=== PATIENT | female | born 1985 | race African-American/Black ===

== ENCOUNTER 2018-03-02 17:43 | Outpatient (CLI) | payer MEDICAID ==
--- NOTE | 2018-03-02 21:14 | RADIOLOGY REPORT (SQ) ---
EXAM DESCRIPTION: US BIOPHYSICAL PROFILE WITHOUT NON STRESS TEST COMPLETED DATE/TME: 03/02/2018 19:21 CLINICAL HISTORY: 32 years, Female, non reactive NST at 32.6ega COMPARISON: None. TECHNIQUE: LIMITATIONS: None. FINDINGS: EXAM DESCRIPTION: CLINICAL HISTORY: non reactive NST at 32.6ega COMPARISON: None. FINDINGS: Biophysical profile score: tone: 2. movement: 2. breathin. Fluid volume: 2. Biophysical profile score is 8/8. heart rate 155 bpm. Presentation transverse. IMPRESSION: Normal exam. Biophysical IMPRESSION: 2010 [facility] [employer]- All Rights Reserved
== END 2018-03-02 21:59 | disposition home or self-care (01) ==
LOC: LC 17:43
PROVIDERS: ATTEND Student in an Organized Health Care Education/Training Program
PROC: 4A1HXCZ Monitoring of Products of Conception, Cardiac Rate, External Approach (ICD-10-PCS; principal; 2018-03-02)
DX: Z36.89 Encounter for other specified antenatal screening (principal)
CPT/HCPCS: 76819

== ENCOUNTER 2018-03-08 16:05 | Outpatient (CLI) | payer MEDICAID ==
--- NOTE | 2018-03-08 19:38 | RADIOLOGY REPORT (SQ) ---
EXAM DESCRIPTION: U/S PROFILE W/O STRESS COMPLETED DATE/TIME: 03/08/2018 7:26 pm REASON FOR STUDY: Nonreactive NST COMPARISON: 03/02/2018 TECHNIQUE: Limited carballo-scale realtime and static images of the fetus to measure specified parameter s. LIMITATIONS: None. FINDINGS: HEART RATE: 173 beats per minute. ADRIAN: 14.6 cm. BREATHING MOVEMENT: 2 points. MOVEMENT: 2 points. POSTURE AND TONE: 2 points. QUALITATIVE ADRIAN: 2 points. OTHER: No other significant finding. IMPRESSION: BIOPHYSICAL PROFILE: 12/27. Trimester of : Third - 28 weeks to delivery COMMENT: BREATHING MOVEMENTS: 2 POINTS: PRESENT 0 POINTS: ABSENT MOTION: 2 POINTS: PRESENT 0 POINTS: ABSENT TONE: 2 POINTS: PRESENT 0 POINTS: ABSENT AMNIOTIC FLUID VOLUME: 2 POINTS: LARGEST POCKET GREATER THAN 2 CM DEPTH. 0 POINTS: NO POCKET OF 2 CM. TECHNICAL DOCUMENTATION: JOB ID: [id number] [employer]- All Rights Reserved Reading location - IP/workstation name: [email or web address]
== END 2018-03-08 19:00 | disposition home or self-care (01) ==
LOC: LC 16:05
PROVIDERS: ATTEND Student in an Organized Health Care Education/Training Program
DX: Z34.93 Encounter for supervision of normal pregnancy, unspecified, third trimester (principal)
CPT/HCPCS: 76819

== ENCOUNTER 2018-03-15 17:17 | Outpatient (CLI) | payer MEDICAID ==
--- NOTE | 2018-03-15 18:31 | RADIOLOGY REPORT (SQ) ---
EXAM DESCRIPTION: U/S PROFILE W/O STRESS COMPLETED DATE/TIME: 03/15/2018 6:22 pm REASON FOR STUDY: Non reactive NST COMPARISON: 03/08/2018 TECHNIQUE: Limited carballo-scale realtime and static images of the fetus to measure specified parameter s. LIMITATIONS: None. FINDINGS: HEART RATE: 153 beats per minute. ADRIAN: 9.3 cm BREATHING MOVEMENT: 2 points. MOVEMENT: 2 points. POSTURE AND TONE: 2 points. QUALITATIVE ADRIAN: 2 points. OTHER: No other significant finding. IMPRESSION: BIOPHYSICAL PROFILE: 12/27. Trimester of : Third - 28 weeks to delivery COMMENT: BREATHING MOVEMENTS: 2 POINTS: PRESENT 0 POINTS: ABSENT MOTION: 2 POINTS: PRESENT 0 POINTS: ABSENT TONE: 2 POINTS: PRESENT 0 POINTS: ABSENT AMNIOTIC FLUID VOLUME: 2 POINTS: LARGEST POCKET GREATER THAN 2 CM DEPTH. 0 POINTS: NO POCKET OF 2 CM. TECHNICAL DOCUMENTATION: JOB ID: [id number] [email or web address]- All Rights Reserved Reading location - IP/workstation name: [email or web address]
== END 2018-03-15 18:32 | disposition home or self-care (01) ==
LOC: LC 17:17
PROVIDERS: ATTEND Obstetrics & Gynecology
PROC: 4A1HXCZ Monitoring of Products of Conception, Cardiac Rate, External Approach (ICD-10-PCS; principal; 2018-03-15)
DX: Z36.89 Encounter for other specified antenatal screening (principal)
CPT/HCPCS: 76819

== ENCOUNTER → 2018-03-19 | Outpatient (CLI) | payer MEDICAID ==
[2018-03-19 14:39] LABS: HEMATOCRIT 26.2 % (36.0-47.0); HEMOGLOBIN 9.3 g/dL (12.0-15.5); MEAN CORPUSCULAR HGB CONC 35.4 g/dL (32.0-36.0); MEAN CORPUSCULAR VOLUME 71 fl (80-97); PLATELET COUNT 198 10^3/uL (150-450); RED CELL DISTRIBUTION WIDTH 16.1 % (11.5-14.0); WHITE BLOOD COUNT 8.9 10^3/uL (4.0-10.5)
[2018-03-19 14:57] LABS: ASPARTATE AMINO TRANSFERASE 15 U/L (14-36)
[2018-03-19 14:58] LABS: UR PRO/CREAT RATIO RESULT 0.1 mg/mg (0.0-0.2); URINE CREATININE 110.8 mg/dL (16-327); URINE PROTEIN 12.7 mg/dL (<12)
== END ==
LOC: OD 13:53
PROVIDERS: ATTEND Registered Nurse Women's Health Care, Ambulatory
DX: O16.9 Unspecified maternal hypertension, unspecified trimester (principal); Z3A.00 Weeks of gestation of pregnancy not specified
CPT/HCPCS: 36415; 82565; 82570; 83615; 84156; 84450; 84550; 85027

== ENCOUNTER 2018-03-22 09:24 | Outpatient (CLI) | payer MEDICAID ==
--- NOTE | 2018-03-22 11:53 | RADIOLOGY REPORT (SQ) ---
EXAM DESCRIPTION: U/S PROFILE W/O STRESS COMPLETED DATE/TIME: 03/22/2018 11:05 am REASON FOR STUDY: NON-REACTIVE NST- GDM @ 35.5 WEEKS COMPARISON: None. TECHNIQUE: Limited carballo-scale realtime and static images of the fetus to measure specified parameter s. LIMITATIONS: None. FINDINGS: HEART RATE: 165 Beats per minute. ADRIAN: 16.8 cm. BREATHING MOVEMENT: 2 points. MOVEMENT: 2 points. POSTURE AND TONE: 2 points. QUALITATIVE ADRIAN: 2 points. OTHER: Vertex presentation. IMPRESSION: BIOPHYSICAL PROFILE: 12/27. Trimester of : Third - 28 weeks to delivery COMMENT: BREATHING MOVEMENTS: 2 POINTS: PRESENT 0 POINTS: ABSENT MOTION: 2 POINTS: PRESENT 0 POINTS: ABSENT TONE: 2 POINTS: PRESENT 0 POINTS: ABSENT AMNIOTIC FLUID VOLUME: 2 POINTS: LARGEST POCKET GREATER THAN 2 CM DEPTH. 0 POINTS: NO POCKET OF 2 CM. TECHNICAL DOCUMENTATION: JOB ID: [id number] [employer]- All Rights Reserved Reading location - IP/workstation name: [email or web address]
--- NOTE | 2018-03-22 12:19 | Non Stress Test Report ---
Non Stress Test Datetime Report Generated by CPN: 03/22/2018 12:19 DEMOGRAPHIC Test Number: 1 EGA NST: 35.5 EGA NST: 33.5 INDICATION Indication for Study: Diabetes Mellitus; Ordered by Provider Indication for Study: Ordered by Provider Indication for Study (NST) Other: sent from the office [employer] VITAL SIGNS Pulse - NST: 108 RESP - NST: 18 NBPSYS NST: 127 NBPDIA NST: 65 URINE RESULTS Urine Protein, NST: N/A Urine Ketones - NST: N/A Urine Glucose - NST: N/A Urine Blood - NST: N/A MONITORING Monitor Explained: Monitor Explained; Test Explained; Patient Verbalized Understanding Monitor Explained: Monitor Explained; Test Explained; Patient Verbalized Understanding Time on Monitor: 03/22/2018 09:35 Time on Monitor: 03/08/2018 16:14 Time on Monitor: 03/02/2018 17:51 Time off Monitor: 03/22/2018 11:54 Time off Monitor: 03/02/2018 20:34 NST Duration: 139 NST Duration: 163 NST INTERVENTIONS NST Interventions: PO Hydration; Reposition Patient; For Biophysical Profile NST Interventions: PO Hydration; Reposition Patient; For Biophysical Profile Physician Notified NST: DR SCHILLING Physician Notified NST: Dr. Tolliver BABY A: [id number] BABY A Movement : Present Movement : Present Contraction Frequency : NONE Contraction Frequency : None FHR Baseline : 145 FHR Baseline : 145 Accelerations : NONE Accelerations : 15X15 Decelerations : None Decelerations : None Variability : Moderate 6-25bpm Variability : Moderate 6-25bpm NST Review: Does Not Meet Criteria for Reactive NST NST Review: Does Not Meet Criteria for Reactive NST NST Review and Verified By : Eloy Morillo RN NST Review and Verified By : Yady Suárez RN and Supriya Avilez RN NST Results: Non-Reactive NST Results: Non-Reactive NST COMMENTS NST Comments: BPP- 8/8 NST Comments: BPP 8/8 NST REPORT Report Trigger: Send Report
== END 2018-03-22 11:57 | disposition home or self-care (01) ==
LOC: LC 09:24
PROVIDERS: ATTEND Obstetrics & Gynecology Gynecology
PROC: 4A1HXCZ Monitoring of Products of Conception, Cardiac Rate, External Approach (ICD-10-PCS; principal; 2018-03-22)
DX: O24.419 Gestational diabetes mellitus in pregnancy, unspecified control (principal); Z3A.35 35 weeks gestation of pregnancy
CPT/HCPCS: 76819

== ENCOUNTER 2018-03-26 10:38 | Inpatient (IN) | payer MEDICAID ==
[2018-03-26 11:31] LABS: APPEARANCE,URINE CLOUDY; BILIRUBIN,URINE NEGATIVE (NEGATIVE); COLOR,URINE YELLOW; GLUCOSE, URINE NEGATIVE (NEGATIVE); KETONES,URINE NEGATIVE (NEGATIVE); LEUKOCYTE ESTERASE,URINE MODERATE (NEGATIVE); NITRITE,URINE NEGATIVE (NEGATIVE); PROTEIN,URINE 30 mg/dL (NEGATIVE); URINE SPECIFIC GRAVITY 1.016; UROBILINOGEN,URINE NEGATIVE mg/dL (<2.0)
[2018-03-26 11:44] LABS: URINE AMPHETAMINES SCREEN NEGATIVE; URINE BARBITURATES SCREEN NEGATIVE; URINE BENZODIAZEPINES SCREEN NEGATIVE; URINE COCAINE SCREEN NEGATIVE; URINE MARIJUANA (THC) SCREEN NEGATIVE; URINE METHADONE SCREEN NEGATIVE; URINE PHENCYCLIDINE SCREEN NEGATIVE
[2018-03-26 11:52] LABS: HEMATOCRIT 28.3 % (36.0-47.0); HEMOGLOBIN 9.9 g/dL (12.0-15.5); MEAN CORPUSCULAR HEMOGLOBIN 24.9 pg (27.0-33.4); MEAN CORPUSCULAR HGB CONC 35.1 g/dL (32.0-36.0); MEAN CORPUSCULAR VOLUME 71 fl (80-97); PLATELET COUNT 201 10^3/uL (150-450); RED BLOOD COUNT 3.99 10^6/uL (3.72-5.28); RED CELL DISTRIBUTION WIDTH 16.3 % (11.5-14.0); WHITE BLOOD COUNT 10.8 10^3/uL (4.0-10.5)
[2018-03-26 12:03] LABS: ALANINE AMINOTRANSFERASE 20 U/L (9-52); ALBUMIN 3.4 g/dL (3.5-5.0); ALKALINE PHOSPHATASE 194 U/L (38-126); ANION GAP 13 (5-19); ASPARTATE AMINO TRANSFERASE 18 U/L (14-36); BILIRUBIN,TOTAL 0.3 mg/dL (0.2-1.3); BLOOD UREA NITROGEN 8 mg/dL (7-20); CALCIUM 9.5 mg/dL (8.4-10.2); CARBON DIOXIDE 20 mmol/L (22-30); CHLORIDE 108 mmol/L (98-107); GLUCOSE 82 mg/dL (75-110); POTASSIUM 4.1 mmol/L (3.6-5.0); SODIUM 141.2 mmol/L (137-145); TOTAL PROTEIN 6.2 g/dL (6.3-8.2); URIC ACID 5.6 mg/dL (2.5-6.2)
[2018-03-26 12:33] LABS: ABSOLUTE LYMPHOCYTES# (MANUAL) 2.1 10^3/uL (0.5-4.7); ABSOLUTE MONOCYTES # (MANUAL) 0.2 10^3/uL (0.1-1.4); ABSOLUTE NEUTROPHILS# (MANUAL) 8.5 10^3/uL (1.7-8.2); BAND NEUTROPHILS % (MANUAL) 1 % (3-5); BASOPHILS % (MANUAL) 0 % (0-2); EOSINOPHILS % (MANUAL) 0 % (0-6); LYMPHOCYTES % (MANUAL) 19 % (13-45); MONOCYTES % (MANUAL) 2 % (3-13); SEGMENTED NEUTROPHILS % (MAN) 78 % (42-78); TOTAL CELLS COUNTED 100
[2018-03-26 12:34] LABS: ANISOCYTOSIS 1+; HYPOCHROMASIA 1+; PLATELET COMMENT ADEQUATE; PLATELET LARGE PRESENT; POLYCHROMASIA SLIGHT; TEAR DROP CELLS SLIGHT; TOXIC GRANULATION SLIGHT; TOXIC VACUOLATION PRESENT
[2018-03-26] MEDS ORDERED: ALBUTEROL SULFATE 0.083% NEB 2.5 MG/3 ML AMPUL NEB PRN (13:56)
[2018-03-26 14:22] LABS: UR PRO/CREAT RATIO RESULT 0.2 mg/mg (0.0-0.2); URINE CREATININE 109.3 mg/dL (16-327); URINE PROTEIN 26.2 mg/dL (<12)
[2018-03-26] MEDS ORDERED: MAG HYDROX/AL HYDROX/SIMETH SUSP 30 ML UDCUP PO ONE (14:59)
[2018-03-26] MEDS ORDERED: MAG HYDROX/AL HYDROX/SIMETH SUSP 30 ML UDCUP ONE (15:07)
--- NOTE | 2018-03-26 16:48 | Admission Physical ---
Datetime Report Generated by CPN: 03/26/2018 16:48 CURRENT ADMISSION Chief Complaint: Signs/Symptoms Gestational HTN Indication for Induction: Not Applicable Admit Impression : , Intrauterine Admit Plan: Observation/Evaluation Admit Plan- Other: observation for 24 hour urine for protein ALLERGIES Medication Allergies: No Medication Allergies: No Known Allergies (03/22/2018) Latex: No Latex Allergies OBSTETRICAL HISTORY EDC: 04/21/2018 00:00 : 4 Para: 3 Term: 3 Livin Cesareans: 0 Gestational Diabetes: Yes Rh Sensitization: No Incompetent Cervix: No ADRIANNE: No Infertility: No ART Treatment: No Uterine Anomaly: No IUGR: No Hx Previous C/S: No Macrosomia: No Hx Loss/Stillborn: No PIH: Yes Hx : No Placenta Previa/Abruption: No Depression/PP Depression: No PTL/PROM: No Post Hemorrhage: No Current Procedures: Ultrasound; NST; BPP SEE RECORDS Alcohol: No Marijuana : No Cocaine: No Other Illicit Drugs: No Cigarettes: Never Smoker. 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 Heart Disease: No Hosp/Surgery: Yes Autoimmune Disorder: No Anesthetic Complications: No Kidney Disease: No Abnormal Pap Smear: No Neuro/Epilepsy: No Psychiatric Disorders: No Other Medical Diseases: Yes Hepatitis/Liver Disease: No Significant Family History: No Varicosities/Phlebitis: No Trauma/Violence : No Thyroid Dysfunction: No Medical History Comments: Sickle Cell trait Childbirth, Asthma hospitalizations INFECTIOUS HISTORY Gonorrhea: No Genital Herpes: No Chlamydia: No Tuberculosis: No Syphilis: No Hepatitis: No HIV/AIDS Exposure: No Rash or Viral Illness: No HPV: No PHYSICAL EXAM General: Normal HEENT: Normal Neurologic: Normal Thyroid: Deferred Heart: Normal Lungs: Normal Breast: Deferred Back: Normal Abdomen: Normal Genitourinary Exam: Normal Extremities: Normal DTRs: Normal Pelvic Type: Not Done Physical Exam Comments: pelvis proven to 8#9 Vital Signs: Reviewed Details Vital Signs: elevated BP VAGINAL EXAM Contraction Comments: none MEMBRANES Membranes: Intact FETUS A EGA: 36.2 Monitoring: External US FHR- Baseline: 145 Variability: Moderate 6-25bpm Accelerations: 15X15 Decelerations: None Estimated Weight (gm): 3100 Presentation: Vertex Admit Comment: at 35w2d sent from [facility] for elevated BP, CHTN with some severe range today. not on BP meds, hx asthma, SC trait, blood tx for anemia, pre-e x2, current GDM. P:23 hour obs with 24 hour urine collection PLANS FOR LABOR AND DELIVERY Labor and Delivery: None Pain Management: Epidural Feeding Preference: Breast Benefit of Breast Feed Discussed: Yes Circumcision: N/A INFORMED CONSENT Assignment: Grace Tolliver MD Signature: with User ID: Jorge Alberto : with User ID: [email or web address]
[2018-03-26] MEDS ORDERED: INSULIN REG, HUMAN 100 UNIT/ML 3 ML VIAL (PYX) ONE (17:56)
[2018-03-26] MEDS ORDERED: INSULIN NPH (ISOPHANE), HUMAN 100 UNIT/ML 3 ML ONE (21:46)
[2018-03-26] MEDS: INSULIN NPH (ISOPHANE), HUMAN 100 UNIT/ML 3 ML SUBCUT SCH (21:53)
[2018-03-27] MEDS ORDERED: INSULIN NPH (ISOPHANE), HUMAN 100 UNIT/ML 3 ML SUBCUT SCH (08:00)
[2018-03-27] MEDS ORDERED: INSULIN REG, HUMAN 100 UNIT/ML 3 ML VIAL (PYX) SUBCUT SCH ×3 (08:00→16:00)
[2018-03-27] MEDS ORDERED: INSULIN REG, HUMAN 100 UNIT/ML 3 ML VIAL (PYX) ONE ×3 (08:58→18:17)
[2018-03-27] MEDS ORDERED: INSULIN NPH (ISOPHANE), HUMAN 100 UNIT/ML 3 ML ONE ×2 (08:58→22:01)
[2018-03-27] MEDS ORDERED: MAG HYDROX/AL HYDROX/SIMETH SUSP 30 ML UDCUP ONE (15:49)
[2018-03-27 15:57] LABS: URINE PROTEIN 17.2 mg/dL (<12)
[2018-03-27 15:58] LABS: 24 HOUR URINE PROTEIN RESULT 440 mg/day (42-225)
[2018-03-27] MEDS ORDERED: MAG HYDROX/AL HYDROX/SIMETH SUSP 30 ML UDCUP PO ONE (16:27)
[2018-03-27] MEDS ORDERED: OXYTOCIN/NORMAL SALINE 20 UNIT/1,000 ML RTUINJ IV PRN (18:30)
[2018-03-27] MEDS ORDERED: DINOPROSTONE 10 MG VAGINAL INSERT.SR PV PRN (18:30)
[2018-03-27] MEDS ORDERED: RINGERS SOLUTION,LACTATED 1,000 ML IV PRN (18:30)
[2018-03-27] MEDS ORDERED: RINGERS SOLUTION,LACTATED 300 ML IV ONE (18:30)
[2018-03-27] MEDS ORDERED: HYDRALAZINE HCL INJ/PF 20 MG/1 ML SDV IV ONE (18:38)
[2018-03-27] MEDS ORDERED: HYDRALAZINE HCL INJ/PF 20 MG/1 ML SDV ONE (18:45)
[2018-03-27] MEDS ORDERED: DINOPROSTONE 10 MG VAGINAL INSERT.SR ONE (19:56)
[2018-03-27] MEDS: INSULIN NPH (ISOPHANE), HUMAN 100 UNIT/ML 3 ML SUBCUT SCH (22:03)
[2018-03-28] MEDS ORDERED: OXYTOCIN/NORMAL SALINE 20 UNIT/1,000 ML RTUINJ ONE (09:18)
[2018-03-28] MEDS ORDERED: DEXTROSE 50%-WATER SYRINGE 25 GM/50 ML DOSE IV PRN (10:13)
[2018-03-28] MEDS ORDERED: DEXTROSE 40% GEL 15 GM TUBE X 2 PO PRN (10:13)
[2018-03-28] MEDS ORDERED: INSULIN REG, HUMAN 100 UNIT/ML 3 ML VIAL (PYX) SUBCUT PRN (10:13)
[2018-03-28] MEDS ORDERED: GLUCAGON,HUMAN RECOMB 1 MG INJ IM PRN (10:13)
[2018-03-28] MEDS ORDERED: DEXTROSE 40% GEL 15 GM TUBE PO PRN (10:13)
[2018-03-28] MEDS ORDERED: DEXTROSE 50%-WATER SYRINGE 12.5 GM/25 ML DOSE IV PRN (10:13)
[2018-03-28] MEDS ORDERED: PENICILLIN G POTASSIUM 5,000,000 UNIT in DEXTROSE 5%-WATER 100 ML IV ONE (14:05)
[2018-03-28] MEDS ORDERED: PENICILLIN G-K 5 MILLION UNIT VIAL ONE ×3 (14:05→21:26)
[2018-03-28] MEDS: PENICILLIN G POTASSIUM 2,500,000 UNIT in DEXTROSE 5%-WATER 50 ML IV SCH ×2 (18:21→22:04)
[2018-03-28] MEDS ORDERED: INSULIN NPH (ISOPHANE), HUMAN 100 UNIT/ML 3 ML ONE (20:20)
--- NOTE | 2018-03-28 21:06 | L&D Progress Notes ---
PROGRESS NOTES Datetime Report Generated by CPN: 03/28/2018 21:06 PROGRESS NOTE Comment: Her cervix is 3 thick with very high presenting part. She could use some more cervical ripening but doesn't want cervadil. We will proceed with a slow pit tonight and attempt to bring the presenting part down. VAGINAL EXAM Contractions: none MEMBRANES Membranes: Intact FETUS A : 36+2 Estimated Weight (gm): 3100 Presentation: Vertex SIGNATURE SIGNATURE: [id number] SIGNATURE: ,[id number] SIGNATURE: ,[id number] Signature: with User ID: [email or web address]
[2018-03-28] MEDS: INSULIN NPH (ISOPHANE), HUMAN 100 UNIT/ML 3 ML SUBCUT SCH (22:07)
[2018-03-29] MEDS ORDERED: PENICILLIN G-K 5 MILLION UNIT VIAL ONE ×2 (02:24→06:18)
[2018-03-29] MEDS: PENICILLIN G POTASSIUM 2,500,000 UNIT in DEXTROSE 5%-WATER 50 ML IV SCH ×2 (02:32→06:25)
--- NOTE | 2018-03-29 13:11 | RADIOLOGY REPORT (SQ) ---
EXAM DESCRIPTION: U/S PROFILE W/O STRESS COMPLETED DATE/TIME: 03/29/2018 1:02 pm REASON FOR STUDY: iup 36+5 IDDM CHTN, morbid obesity COMPARISON: 03/22/2018, 03/15/2018 biophysical profile TECHNIQUE: Limited carballo-scale realtime and static images of the fetus to measure specified parameter s. LIMITATIONS: None. FINDINGS: HEART RATE: 160 beats per minute. ADRIAN: 7.5 cm. BREATHING MOVEMENT: 2 points. MOVEMENT: 2 points. POSTURE AND TONE: 2 points. QUALITATIVE ADRIAN: 2 points. OTHER: No other significant finding. IMPRESSION: BIOPHYSICAL PROFILE: 12/27. Trimester of : Third - 28 weeks to delivery COMMENT: BREATHING MOVEMENTS: 2 POINTS: PRESENT 0 POINTS: ABSENT MOTION: 2 POINTS: PRESENT 0 POINTS: ABSENT TONE: 2 POINTS: PRESENT 0 POINTS: ABSENT AMNIOTIC FLUID VOLUME: 2 POINTS: LARGEST POCKET GREATER THAN 2 CM DEPTH. 0 POINTS: NO POCKET OF 2 CM. TECHNICAL DOCUMENTATION: JOB ID: [id number] [employer]- All Rights Reserved Reading location - IP/workstation name: [email or web address]
--- NOTE | 2018-03-29 13:20 | PDOC PROGRESS REPORT ---
Subjective Progress Note for:: 03/29/18 Subjective:: pt feels well and has no complaints Reason For Visit: @36 3/7, CHRONIC HYPERTENSION,A2DM, Physical Exam - Physical Exam Vital Signs: Intake & Output 03/28/18 03/29/18 03/30/18 06:59 06:59 06:59 Intake Total 150 Balance 150 General appearance: PRESENT: no acute distress Respiratory exam: PRESENT: clear to auscultation gibran Cardiovascular exam: PRESENT: RRR Result Laboratory Results: 03/26/18 11:25 03/26/18 11:25 03/26/18 19:30 Vaginal/Anorectal Group B Streptococcus Culture - Final NO GROUP B STREPTOCOCCUS RECOVERED Assessment & Plan - Diagnosis (1) Chronic hypertension affecting Is this a current diagnosis for this admission?: Yes (2) Gestational diabetes mellitus (GDM) Is this a current diagnosis for this admission?: Yes - Plan Summary Plan Summary: pt admitted with with elevated bp on Monday. Pt is GDM on insulin and chronic HTN on no meds , Py has had cervidil and fo;ey cath without cervical change, Her cervical length is >5 cm and baby out of the pelvis. Her BPs with one exception has been less than 160 systolic and less than 110 diastolic,, Pt is stressed and uncomfortable and I spoke with Raheem Mo and we feel pt is mildly pre-eclamptic with chronic HTN' Pt was given the option of remaining in the hospital with induction again in a couple of days or go home with pre- eclampsia symptom watch, Pt wants to go home and will follow up on onday with MFM and return here if any signs of pre-eclampsia.
--- NOTE | 2018-03-29 13:26 | PDOC DISCHARGE SUMMARY ---
General - Admit/Disc Date/PCP Admission Date/Primary Care Provider: 03/27/18 18:28 BROOKE WEINER PA-C Discharge Date: 03/29/18 - Discharge Diagnosis (1) Chronic hypertension affecting Is this a current diagnosis for this admission?: Yes (2) Gestational diabetes mellitus (GDM) Is this a current diagnosis for this admission?: Yes - Additional Information Discharge Diet: As Tolerated Discharge Activity: Activity As Tolerated, Balance Activity w/Rest, Energy Conservation, Weigh Daily Home Medications: Albuterol Sulfate [Ventolin 0.083% Neb 2.5 Mg/3 Ml Vial.Neb] 2.5 mg IH PRN PRN 11/03/11 Vits96/Iron Fum/Folic [ Tablet] 1 tab PO DAILY 08/17/13 Aspirin [Aspirin 81 mg Chewable Tablet] 81 mg PO DAILY 03/08/18 Insulin Aspart [Novolog Flexpen] 14 unit SUBCUT ACBRKFST 03/08/18 Insulin Aspart [Novolog Flexpen] 14 unit SUBCUT BIDACBS 03/08/18 NPH, Human Insulin Isophane [Novolin N (NPH) Insulin 100 unit/mL] 22 unit SUBCUT ACBRKFST 03/26/18 NPH, Human Insulin Isophane [Novolin N (NPH) Insulin 100 unit/mL] 40 unit SUBCUT ACHS 03/26/18 History of Present Illness History of Present Illness: QUANTAVINATHALY BLANCA is a 32 year old female Hospital Course Hospital Course: pt admitted and induction attempted without cervical change, BPP 10/10 and option given and she wants to be discharged. She will return if any symptoms of pre-eclampsia or other problems,, Pt to see [facility] Monday. Physical Exam - Physical Exam Vital Signs: Intake & Output 03/28/18 03/29/18 03/30/18 06:59 06:59 06:59 Intake Total 150 Balance 150 General appearance: PRESENT: no acute distress Respiratory exam: PRESENT: clear to auscultation gibran Cardiovascular exam: PRESENT: RRR Result Laboratory Results: 03/26/18 11:25 03/26/18 11:25 03/26/18 19:30 Vaginal/Anorectal Group B Streptococcus Culture - Final NO GROUP B STREPTOCOCCUS RECOVERED Impressions: Stress Test 03/29/18 11:00 IMPRESSION: BIOPHYSICAL PROFILE: 12/27. Trimester of : Third - 28 weeks to delivery
--- NOTE | 2018-03-29 13:48 | Non Stress Test Report ---
Non Stress Test Datetime Report Generated by CPN: 03/29/2018 13:48 DEMOGRAPHIC EGA NST: 36.5 INDICATION Indication for Study: Chronic Hypertension; Ordered by Provider MONITORING Monitor Explained: Monitor Explained; Test Explained; Patient Verbalized Understanding Time on Monitor: 03/29/2018 12:00 Time off Monitor: 03/29/2018 12:20 NST Duration: 20 NST INTERVENTIONS NST Interventions: IV Fluids; For Biophysical Profile Physician Notified NST: Dr. Malone BABY A: [id number] BABY A Movement : Present Contraction Frequency : Intermittent FHR Baseline : 145 Accelerations : 15X15 Decelerations : None Variability : Moderate 6-25bpm NST Review: Meets Criteria for Reactive NST NST Review and Verified By : Lorena Camp RNC NST Results: Reactive NST COMMENTS NST Comments: BPP 8/8 on 11/08/18 NST REPORT Report Trigger: Send Report
== END 2018-03-29 13:37 | disposition home or self-care (01) | DRG 833 ==
LOC: LC 10:38 → LR 16:40 → 2S 03-27 06:31 → LR 03-27 06:39 → OBSVTOIN 03-27 18:28
PROVIDERS: ADMIT Obstetrics & Gynecology; ATTEND Obstetrics & Gynecology
PROC: 3E0P7VZ Introduction of Hormone into Female Reproductive, Via Natural or Artificial Opening (ICD-10-PCS; principal; 2018-03-27)
PROC: 4A1HXCZ Monitoring of Products of Conception, Cardiac Rate, External Approach (ICD-10-PCS; 2018-03-27)
DX: O11.3 Pre-existing hypertension with pre-eclampsia, third trimester (principal); O24.414 Gestational diabetes mellitus in pregnancy, insulin controlled; O99.013 Anemia complicating pregnancy, third trimester; O10.913 Unspecified pre-existing hypertension complicating pregnancy, third trimester; D57.1 Sickle-cell disease without crisis; Z3A.36 36 weeks gestation of pregnancy
CPT/HCPCS: 36415; 76819; 80053; 80307; 81001; 82570; 82962; 83615; 84156; 84550; 85025; 87081; C1758; G0378; J0360; J1815; J2540; J2590; J3490

== ENCOUNTER 2018-03-30 22:01 | Inpatient (IN) | payer MEDICAID ==
[2018-03-30 22:53] LABS: ABSOLUTE EOSINOPHILS # (AUTO) 0.1 10^3/uL (0.0-0.6); ABSOLUTE LYMPHOCYTES (AUTO) 1.7 10^3/uL (0.5-4.7); ABSOLUTE MONOCYTES (AUTO) 0.9 10^3/uL (0.1-1.4); ABSOLUTE NEUT (AUTO) 7.2 10^3/uL (1.7-8.2); BASOPHILS % (AUTO) 0.3 % (0-2); EOSINOPHILS % (AUTO) 0.9 % (0-6); HEMATOCRIT 25.4 % (36.0-47.0); HEMOGLOBIN 8.4 g/dL (12.0-15.5); LYMPHOCYTES % (AUTO) 17.4 % (13-45); MEAN CORPUSCULAR HEMOGLOBIN 23.5 pg (27.0-33.4); MEAN CORPUSCULAR HGB CONC 33.3 g/dL (32.0-36.0); MEAN CORPUSCULAR VOLUME 71 fl (80-97); MONOCYTES % (AUTO) 9.5 % (3-13); PLATELET COUNT 202 10^3/uL (150-450); RED BLOOD COUNT 3.59 10^6/uL (3.72-5.28); RED CELL DISTRIBUTION WIDTH 16.7 % (11.5-14.0); SEGMENTED NEUTROPHILS % (AUTO) 71.9 % (42-78); TOTAL CELLS COUNTED % (AUTO) 100 %
[2018-03-30 23:00] LABS: APPEARANCE,URINE SLIGHTLY-CLOUDY; BILIRUBIN,URINE NEGATIVE (NEGATIVE); COLOR,URINE YELLOW; GLUCOSE, URINE NEGATIVE (NEGATIVE); KETONES,URINE NEGATIVE (NEGATIVE); LEUKOCYTE ESTERASE,URINE TRACE (NEGATIVE); NITRITE,URINE NEGATIVE (NEGATIVE); PROTEIN,URINE 100 mg/dL (NEGATIVE); UROBILINOGEN,URINE NEGATIVE mg/dL (<2.0)
[2018-03-30 23:11] LABS: URINE AMPHETAMINES SCREEN NEGATIVE; URINE BARBITURATES SCREEN NEGATIVE; URINE BENZODIAZEPINES SCREEN NEGATIVE; URINE COCAINE SCREEN NEGATIVE; URINE MARIJUANA (THC) SCREEN NEGATIVE; URINE METHADONE SCREEN NEGATIVE; URINE PHENCYCLIDINE SCREEN NEGATIVE
[2018-03-30] MEDS ORDERED: GLUCAGON,HUMAN RECOMB 1 MG INJ SUBCUT PRN (23:23)
[2018-03-30] MEDS ORDERED: DEXTROSE 50%-WATER 25 GM/50 ML DISP.SYRIN IV PRN ×2 (23:23)
[2018-03-30] MEDS ORDERED: DEXTROSE 40% GEL 15 GM TUBE PO PRN ×2 (23:23)
[2018-03-30] MEDS ORDERED: CEFAZOLIN SODIUM 3 GM in DEXTROSE 5%-WATER 50 ML IV PRN (23:23)
[2018-03-30] MEDS ORDERED: CITRIC ACID/SODIUM CITRATE ORAL SOLN 15 ML UDCUP ONE (23:28)
[2018-03-30] MEDS ORDERED: CEFAZOLIN 1 GM/D5W RTU 3 GM/150 ML RTUPB IV ONE (23:28)
--- NOTE | 2018-03-30 23:37 | Admission Physical ---
Datetime Report Generated by CPN: 03/30/2018 23:36 CURRENT ADMISSION Chief Complaint: Uterine Contractions; Signs/Symptoms Gestational HTN Indication for Induction: Not Applicable Admit Impression : Term, Intrauterine ; No Active Labor; Intact Membranes; Primary Section Admit Plan: Admit to Unit; Initiate Section Protocol Admit Plan- Other: observation for 24 hour urine for protein ALLERGIES Medication Allergies: No Medication Allergies: No Known Allergies (03/22/2018) Latex: No Latex Allergies Food Allergies: N/A Environmental Allergies: N/A OBSTETRICAL HISTORY EDC: 04/21/2018 00:00 : 4 Para: 3 Term: 3 : 0 SAB: 0 IAB: 0 Ectopic: 0 Livin Cesareans: 0 VBACs: 0 Multiple Births: 0 Gestational Diabetes: Yes Rh Sensitization: No Incompetent Cervix: No ADRIANNE: No Infertility: No ART Treatment: No Uterine Anomaly: No IUGR: No Hx Previous C/S: No Macrosomia: No Hx Loss/Stillborn: No PIH: Yes Hx : No Placenta Previa/Abruption: No Depression/PP Depression: No PTL/PROM: No Post Hemorrhage: No Current Procedures: Ultrasound; NST; BPP Obstetrical History Comments: G1- 2006 , baby boy at 40 weeks, 7lbs 14oz, Pre-E G2- 2008 , baby boy at 40 weeks, 8lbs 9oz, Pre-E, GDM G3- 2013 , baby boy at 39 weeks, 8lbs 14oz G4- current, GDM on insulin, Pre-E SEE RECORDS Alcohol: No Marijuana : No Cocaine: No Other Illicit Drugs: No Cigarettes: Never Smoker. 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 Heart Disease: No Hosp/Surgery: Yes Autoimmune Disorder: No Anesthetic Complications: No Kidney Disease: No Abnormal Pap Smear: No Neuro/Epilepsy: No Psychiatric Disorders: No Other Medical Diseases: Yes Hepatitis/Liver Disease: No Significant Family History: No Varicosities/Phlebitis: No Trauma/Violence : No Thyroid Dysfunction: No Medical History Comments: Sickle Cell trait- has had transfusion Childbirth, Asthma hospitalizations INFECTIOUS HISTORY Gonorrhea: No Genital Herpes: No Chlamydia: No Tuberculosis: No Syphilis: No Hepatitis: No HIV/AIDS Exposure: No Rash or Viral Illness: No HPV: No PHYSICAL EXAM General: Normal HEENT: Normal Neurologic: Normal Thyroid: Deferred Heart: Normal Lungs: Normal Breast: Deferred Back: Normal Abdomen: Normal Genitourinary Exam: Normal Extremities: Normal DTRs: Normal Pelvic Type: Adequate Physical Exam Comments: pelvis proven to 8#9 Vital Signs: Reviewed Details Vital Signs: elevated BP VAGINAL EXAM Dilatation: 4 Effacement: 50 Station: -2 Contraction Comments: irregular MEMBRANES Membranes: Intact FETUS A EGA: 36.6 Monitoring: External US FHR- Baseline: 155 Variability: Moderate 6-25bpm Accelerations: 15X15 Decelerations: None FHR Category: Category II Estimated Weight (gm): 3100 Presentation: Breech Admit Comment: 32yo at 36+6ega presents for blurry vision with known CHTN with superimposed PreE and IOL was attempted on Mon and then discharged yesterday due to limited cervical change. H/o Ashtma, SC trait, obesity, GDM NPH /40, Reg . Abn AFP- informaseq nl. Baseline 24 hr UTP 243, 24 hr UTP Tues 03/27 ws 440. Reviewed with patient cvx 4cm and unchanged with bulging bag and no presenting part. US done with tanya breech presentation. Reviewed options for treatment and with significantly elevated blood pressures and symptomatic with superimposed preE would recommend delivery. Offered ECV and reviewed risks/benefits/alternatives and pt declines. She desires to proceed with Primary section. She desires IUD for contraception. PLANS FOR LABOR AND DELIVERY Labor and Delivery: None Pain Management: Epidural Feeding Preference: Breast Benefit of Breast Feed Discussed: Yes Circumcision: N/A INFORMED CONSENT Informed Consent Obtained: Section Delivery; Risks, Benefits and Alternatives Discussed Assignment: Grace Tolliver MD Signature: with User ID: [email or web address] : with User ID: [email or web address]
[2018-03-31] MEDS ORDERED: DIPHENHYDRAMINE HCL 50 MG/ML VIAL IV PRN (01:03)
[2018-03-31] MEDS ORDERED: FENTANYL CITRATE INJ/PF 100 MCG/2 ML AMPUL IV PRN ×3 (01:03)
[2018-03-31] MEDS ORDERED: MEPERIDINE HCL/PF INJ 25 MG/1 ML DISP.SYRIN IV PRN (01:03)
[2018-03-31] MEDS ORDERED: PROMETHAZINE HCL INJ 25 MG/1 ML VIAL IV PRN ×2 (01:03→02:29)
[2018-03-31] MEDS ORDERED: ACETAMINOPHEN 1,000 MG/100 ML RTUPB IV ONE (02:27)
[2018-03-31] MEDS ORDERED: DIPH/PERTUSS(ACELL)/TETANUS VAC/PF 0.5 ML SYR (>=10YO) IM PRN (02:29)
[2018-03-31] MEDS ORDERED: MORPHINE SULFATE 10 MG/ML INJ ONE (02:29)
[2018-03-31] MEDS ORDERED: OXYTOCIN/NORMAL SALINE 20 UNIT/1,000 ML RTUINJ IV PRN (02:29)
[2018-03-31] MEDS ORDERED: HYDROMORPHONE HCL INJ/PF 2 MG/ML AMPULE IV PRN (02:29)
[2018-03-31] MEDS ORDERED: SIMETHICONE 80 MG TAB.CHEW PO PRN (02:29)
[2018-03-31] MEDS ORDERED: ACETAMINOPHEN 325 MG TABLET PO PRN (02:29)
[2018-03-31] MEDS ORDERED: ACETAMINOPHEN 1,000 MG/100 ML RTUPB IV PRN (02:29)
[2018-03-31] MEDS ORDERED: OXYCODONE-ACETAMINOPHEN 5-325 MG TABLET PO PRN (02:29)
[2018-03-31] MEDS ORDERED: MEASLES,MUMPS&RUBELLA VACC/PF 0.5 ML VIAL SUBCUT PRN (02:29)
[2018-03-31] MEDS: MORPHINE SULFATE 10 MG/ML INJ IV PRN ×2 (02:34→02:52)
--- NOTE | 2018-03-31 02:44 | Warning Signs in Babies ---
VOD Warning Signs Datetime Report Generated by [facility]: 03/31/2018 02:44 VOD#608 -Warning Signs in Babies: Needs to be viewed. (03/31/2018 02:30:Natalia Caldera RN)
[2018-03-31] MEDS ORDERED: MEPERIDINE HCL/PF INJ 25 MG/1 ML DISP.SYRIN ONE (03:07)
[2018-03-31] MEDS ORDERED: OXYTOCIN/NORMAL SALINE 20 UNIT/1,000 ML RTUINJ ONE (03:17)
--- NOTE | 2018-03-31 03:20 | Brief Operative Note ---
BRIEF OPERATIVE REPORT DATE OF SURGERY: 03/31/18 TIME OF SURGERY: 01:00 PREOPERATIVE DIAGNOSIS: Breech, 37+0ega, CHTN with superimpsed PreE with symptoms, A2GDM, Obesity POSTOPERATIVE DIAGNOSIS: KALPESH - delivered SURGEON: SHANNON DELEON FINDINGS: Normal uterus, normal bilateral tubes/ovaries. Armando breech presentation. VFI delivered at 0056 on 03/31/2018, Apgars 7/9, Weight 6#10oz, IVF 800ml, UOP 200ml COMPLICATIONS: None ESTIMATED BLOOD LOSS: 647ml TISSUE REMOVED OR ALTERED: Placenta and cord TECHNICAL PROCEDURE: Primary section
--- NOTE | 2018-03-31 03:21 | Operative Report ---
Operative Report DATE OF SURGERY: 03/31/18 PREOPERATIVE DIAGNOSIS: Breech, 37+0ega, CHTN with superimpsed PreE with symptoms, A2GDM, Obesity POSTOPERATIVE DIAGNOSIS: KALPESH - delivered OPERATION: Primary section SURGEON: SHANNON DELEON ANESTHESIA: Spinal TISSUE REMOVED OR ALTERED: Placenta and cord COMPLICATIONS: none ESTIMATED BLOOD LOSS: 647ml INTRAOPERATIVE FINDINGS: Normal uterus, normal bilateral tubes/ovaries. Armando breech presentation. VFI delivered at 0056 on 03/31/2018, Apgars 7/9, Weight 6# 10oz, IVF 800ml, UOP 200ml PROCEDURE: Anesthesia provider: [Akira De La Rosa MD, Marietta Patino CRNA] Urine output: [200ml] IV fluids: [800ml] Indications: [32yo at 37+0ega presents for vaginal spotting at home and contractions. Her is complicated by CHTN with superimposed PreE and was admitted and IOL attempted but did not achieve cervical dilation past 4cm and was discharged to home on 03/29. Upon arrival to labor and delivery unable to find presenting part and cervical exam unchanged. Ultrasound done and armando breech presentation. Reviewed options and offered external cephalic version. She declines ECV and desires Primary section. The risks, benefits, alternatives were reviewed and she desires to proceed with planned procedure.] Procedure: The patient was taken to the operating room where spinal anesthesia was obtained and found to be adequate. She was then prepped and draped in the normal sterile fashion and placed in the dorsal supine position with a leftward tilt. A Pfannenstiel skin incision was then made and carried through to the underlying layers of the fascia with the scalpel. The fascia was incised in the midline and the incision extended laterally with the Cerda scissors. The superior aspect of the fascial incision was then grasped with alfredo clamps elevated and the underlying rectus muscles dissected off [bluntly]. Attention was then turned to the inferior aspect of the fascial incision which in a similar fashion was grasped, tented up with Alfredo clamps, and the rectus muscles dissected off [bluntly]. The rectus muscles were then in the midline and the peritoneum at the amount identified and entered [bluntly]. The peritoneal incision was then extended superiorly and inferiorly with good visualization of the bladder. The bladder blade was inserted and the vesicouterine peritoneum identified grasped with Burkinan pickups and entered sharply with the Metzenbaum scissors. This incision was then extended laterally with the Metzenbaum scissors and a bladder flap created digitally. The bladder blade was then reinserted and the lower uterine segment incised in a transverse fashion with the scalpel. The uterine incision was then extended bluntly. The bladder blade was removed and the infant's was delivered from armando breech presentation atraumatically. The nose and mouth were suctioned and the cord doubly clamped and cut. And the infant was handed off to waiting pediatricians. The placenta was then delivered spontaneously and the uterus exteriorized and cleared of all clots and debris. The uterine incision was then repaired with 1- 0 Vicryl in a running locked fashion. A second layer of the same suture was used to obtain hemostasis via imbrication of the initial layer. The bladder flap was then repaired with 3-0 chromic in a running fashion. The uterus was returned to the patient's abdomen and Interceed was placed overlying the uterine incision to prevent adhesions. The gutters were cleared of all clots and debris. All operative sites were noted to be hemostatic. The fascia was reapproximated with 0 Vicryl in a running fashion from each lateral edge to the midline. The skin was closed with 3-0 Monocryl in a running subcuticular fashion with overlying Dermabond for additional dressing as well as wound closure. The patient tolerated the procedure well. Sponge lap needle and instrument counts are correct times 2. 2 g of Ancef were given prior to skin incision. The patient was taken to the recovery area awake and in stable condition.
--- NOTE | 2018-03-31 05:49 | Delivery Summary ---
Del Sum A-C Datetime Report Generated by CPN: 03/31/2018 05:48 DELIVERY PERSONNEL DELIVERY PERSONNEL: [id number] Delivery Doctor:: Grace Tolliver MD Anesthesiologist:: Anitha De La Rosa MD CHANNEL ACCOUNT MANAGER:: Marietta Patino CRNA Custodial Laborer:: Lucy Duran RN Neonatal Nurse Practitioner:: Mercedes Eckert, BOTTLER Group Care Worker/DATA ENTRY SPECIALIST: [facility] Group Care Worker/DATA ENTRY SPECIALIST: [facility] MATERNAL INFORMATION Delivery Anesthesia: Spinal Medications After Delivery: Pitocin Drip 20 Units/1000ml NSS Maternal Complications: Other Complication Details: gdm, superimposed preE LABOR SUMMARY EDC: 04/21/2018 00:00 No. Babies in Womb: 1 Attempted: No Labor Anesthesia: None LABOR INFORMATION Reason for Induction: Not Applicable Cervical Ripening Agents: Bowers Balloon Oxytocin: N/A Group B Beta Strep: 1 NO GROUP B STREPTOCOCCUS RECOVERED Steroids Given: None Reason Steroids Not Administered: Not Applicable MEMBRANES Membranes Rupture Method: Artificial Rupture of Membranes: 03/31/2018 00:56 Length of Rupture (hr): 0.00 Amniotic Fluid Color: Clear Amniotic Fluid Amount: Small STAGES OF LABOR Stage 3 hr: 0 Stage 3 min: 1 VAGINAL DELIVERY Episiotomy: None Laceration #1: None Laceration Extension #1: N/A Sponge Count Correct: N/A CSECTION DELIVERY Primary Indication: Breech Presentation Secondary Indication: N/A CSection Urgency: Non-Scheduled CSection Incidence: Primary Labor: No Labor Elective: Nonelective CSection Incision: Lower Uterine Transverse BABY A INFORMATION Delivery Date/Time: 03/31/2018 00:56 Method of Delivery: Born in Route : No : N/A Forceps: N/A Vacuum Extraction: N/A Shoulder Dystocia : No PRESENTATION/POSITION BABY A Presentation: Breech Cephalic Presentation: N/A Breech Presentation: Armando PLACENTA INFORMATION BABY A Placenta Delivery Time : 03/31/2018 00:57 Placenta Method of Delivery: Manual Removal Placenta Status: Delivered SCORES BABY A Heart Rate 1 min: >100 bpm Resp Effort 1 min: Good Cry Reflex Irritability 1 min: Cough or Sneeze or Pulls Away Muscle Tone 1 min: Some Flexion of Extremities Color 1 min: Blue/Pale Resuscitation Effort 1 min: Tactile Stimulation SCORE 1 MIN: 7 Heart Rate 5 min: >100 bpm Resp Effort 5 min: Good Cry Reflex Irritability 5 min: Cough or Sneeze or Pulls Away Muscle Tone 5 min: Active Motion Color 5 min: Body Ceiba, Extremities Blue SCORE 5 MIN: 9 INFANT INFORMATION BABY A Gestational Age at Delivery: 37.0 Gestational Status: Early Term- 37- 38.6 Weeks Infant Outcome : Liveborn Infant Condition : Stable Sex: Female IDENTIFICATION BABY A Infant Verification Date/Time: 03/31/2018 01:03 ID Band Number: [id number] Mother's Name Verified: Yes Infant RN Verifying : Micaela Duran RN Additional Verifying Personnel: RSilverio Booker DATA ENTRY SPECIALIST WEIGHT/LENGTH BABY A Infant Birthweight (gm): 2990 Weight (lb): 6 Infant Weight (oz): 9 Length (in): 19.00 Infant Length (cm): 48.26 CORD INFORMATION BABY A No. Cord Vessels: 3 Nuchal Cord : N/A Cord Blood Taken: Yes-For Eval (Mom's Blood Type - or O+) Infant Suction: None; Mouth ASSESSMENT BABY A Infant Complications: None Physical Findings at Delivery: Within Normal Limits Physical Findings- Other: see full nursery assessment Infant Respirations: Appears Normal Skin to Skin: No Intermediate Card Tender/ALS Called : Yes Care By: Paty Malone RN Transferred To: [facility] BABY B INFORMATION : N/A
[2018-03-31] MEDS: IBUPROFEN 800 MG TABLET PO SCH ×3 (06:46→17:53)
[2018-03-31] MEDS ORDERED: METOCLOPRAMIDE HCL INJ/PF 10 MG/2 ML SDV ONE (09:21)
[2018-03-31] MEDS ORDERED: DEXAMETHASONE SOD PHOSPHATE INJ 4 MG/1 ML VIAL ONE (09:21)
[2018-03-31] MEDS ORDERED: ONDANSETRON HCL INJ/PF 4 MG/2 ML SDV ONE (09:21)
[2018-03-31] MEDS: DOCUSATE SODIUM 100 MG CAPSULE PO SCH ×2 (09:36→17:53)
[2018-03-31] MEDS: PRENATAL VITAMIN W DHA CAPSULE PO SCH (09:36)
--- NOTE | 2018-03-31 09:48 | PDOC PROGRESS REPORT ---
Subjective-OB Progress Note for:: 03/31/18 Subjective: Day 0, breech presentation. Pt doing well this morning, no complaints. Breast and bottlefeeding. AB+, Rubella Immune. Hx of GDM and GHTN this Physical Exam (OB) Vital Signs: Temp Pulse Resp BP Pulse Ox 98.3 F 103 H 16 146/86 H 94 03/31/18 08:46 03/31/18 08:46 03/31/18 08:46 03/31/18 08:46 03/31/18 08:46 Intake & Output 03/30/18 03/31/18 04/01/18 06:59 06:59 06:59 Intake Total 100 Output Total 300 Balance -200 Weight 122.1 kg - General General Appearance: Appears well, Alert In distress: None - Lochia Lochia Amount: Scant < 10 ml Lochia Color: Rubra/Red - Abdomen Description: Soft, Round Hernia Present: No Fundal Description: Firm, Midline Fundal Height: u/u - u/2 - Respiratory Respiratory Status: No respiratory distress Breath sounds: Clear - Cardiovascular Rhythm: Regular - Abdominal Inspection: Normal Distension: No distension Tenderness: Nontender - Genitourinary Genitourinary Note: mendoza cath in place - Extremities Upper extremity: Normal inspection Lower extremities: Edema - 1+ - Neurological Cognition: Normal Orientation: AAOx4 - Psychological Associated symptoms: Normal affect, Normal mood - Skin Skin Temperature: Warm Skin Moisture: Dry Objective-Diagnostic Laboratory: 03/30/18 22:30 03/30/18 03/30/18 03/30/18 22:30 22:30 22:30 WBC 10.0 RBC 3.59 L Hgb 8.4 L Hct 25.4 L MCV 71 L MCH 23.5 L MCHC 33.3 RDW 16.7 H Plt Count 202 Seg Neutrophils % 71.9 Lymphocytes % 17.4 Monocytes % 9.5 Eosinophils % 0.9 Basophils % 0.3 Absolute Neutrophils 7.2 Absolute Lymphocytes 1.7 Absolute Monocytes 0.9 Absolute Eosinophils 0.1 Absolute Basophils 0.0 Urine Color YELLOW Urine Appearance SLIGHTLY-CLOUDY Urine pH 5.0 Ur Specific Gays 1.020 Urine Protein 100 H Urine Glucose (UA) NEGATIVE Urine Ketones NEGATIVE Urine Blood LARGE H Urine Nitrite NEGATIVE Ur Leukocyte Esterase TRACE H Blood Type AB POSITIVE Antibody Screen NEGATIVE Assessment and Plan(PN) - Assessment and Plan (1) Anemia, Is this a current diagnosis for this admission?: Yes (2) Breech presentation Qualifiers: Fetus number: single or unspecified fetus Qualified Code(s): O32.1XX0 - Maternal care for breech presentation, not applicable or unspecified Is this a current diagnosis for this admission?: Yes (3) Pre-eclampsia Qualifiers: Trimester: third trimester Qualified Code(s): O14.93 - Unspecified pre- eclampsia, third trimester Is this a current diagnosis for this admission?: Yes (4) S/P primary low transverse Is this a current diagnosis for this admission?: Yes (5) Chronic hypertension affecting Is this a current diagnosis for this admission?: Yes (6) Gestational diabetes mellitus (GDM) Qualifiers: Gestational diabetes mellitus control: diet-controlled Is this a current diagnosis for this admission?: Yes - Time Spent with Patient Medications reviewed and adjusted accordingly: Yes - Disposition Anticipated Discharge: Home Within: within 48 hours
[2018-03-31] MEDS: FERROUS SULFATE 325 MG TABLET PO SCH ×2 (11:47→17:53)
[2018-04-01] MEDS: IBUPROFEN 800 MG TABLET PO SCH ×5 (00:23→23:40)
[2018-04-01 05:40] LABS: HEMATOCRIT 19.8 % (36.0-47.0); MEAN CORPUSCULAR HEMOGLOBIN 23.1 pg (27.0-33.4); MEAN CORPUSCULAR VOLUME 70 fl (80-97); PLATELET COUNT 181 10^3/uL (150-450); RED BLOOD COUNT 2.83 10^6/uL (3.72-5.28); WHITE BLOOD COUNT 13.4 10^3/uL (4.0-10.5)
[2018-04-01 05:41] LABS: HEMOGLOBIN 6.5 g/dL (12.0-15.5)
[2018-04-01] MEDS: FERROUS SULFATE 325 MG TABLET PO SCH ×3 (08:55→18:16)
[2018-04-01] MEDS ORDERED: NORMAL SALINE 250 ML IV PRN (09:35)
--- NOTE | 2018-04-01 09:44 | PDOC PROGRESS REPORT ---
Subjective-OB Progress Note for:: 04/01/18 Subjective: POD #1, pt states she feels fine, up out of bed ambulating. Hbg 6.5 this morning , Dr Tolliver aware. Pt is breast and bottlefeeding Physical Exam (OB) Vital Signs: Temp Pulse Resp BP Pulse Ox 98.8 F 120 H 18 140/84 H 97 04/01/18 07:43 04/01/18 07:43 04/01/18 07:43 04/01/18 07:43 04/01/18 07:43 Intake & Output 03/31/18 04/01/18 04/02/18 06:59 06:59 06:59 Intake Total 100 1000 Output Total 300 800 Balance -200 200 Weight 122.1 kg - General General Appearance: Appears well, Alert - PIH/Pre-Eclampsia DTR's: 2 + Clonus: Negative Headache: Absent Epigastric Pain: No Visual Changes: No - Dressing Removed: No Incision: Dressing Closure Type: Elastic - Lochia Lochia Amount: Small 10-25 ml Lochia Color: Rubra/Red - Abdomen Description: Tender, Soft Hernia Present: No Fundal Description: Firm, Midline Fundal Height: u/u - u/2 - Respiratory Respiratory Status: No respiratory distress - Abdominal Inspection: Normal Distension: No distension - Genitourinary Genitourinary Note: voiding - Extremities Upper extremity: Normal inspection Lower extremities: Other - 1+ - Neurological Cognition: Normal Orientation: AAOx4 - Psychological Associated symptoms: Normal affect, Normal mood - Skin Skin Temperature: Warm Skin Moisture: Dry Objective-Diagnostic Laboratory: 04/01/18 05:18 04/01/18 05:18 WBC 13.4 H RBC 2.83 L Hgb 6.5 L Hct 19.8 L MCV 70 L MCH 23.1 L MCHC 33.0 RDW 17.0 H Plt Count 181 Assessment and Plan(PN) - Assessment and Plan (1) Anemia, Is this a current diagnosis for this admission?: Yes (2) Breech presentation Qualifiers: Qualified Code(s): O32.1XX0 - Maternal care for breech presentation, not applicable or unspecified Is this a current diagnosis for this admission?: Yes (3) Pre-eclampsia Qualifiers: Qualified Code(s): O14.93 - Unspecified pre-eclampsia, third trimester Is this a current diagnosis for this admission?: Yes (4) S/P primary low transverse Is this a current diagnosis for this admission?: Yes (5) Chronic hypertension affecting Is this a current diagnosis for this admission?: Yes (6) Gestational diabetes mellitus (GDM) Is this a current diagnosis for this admission?: Yes - Time Spent with Patient Time with patient: Less than 15 minutes Medications reviewed and adjusted accordingly: Yes - Disposition Anticipated Discharge: Home Within: within 48 hours - pt is stable, discussed with Dr Tolliver and she will order 2 units PRBC for blood transfusion today. Pt informed, agrees with plan
[2018-04-01] MEDS: PRENATAL VITAMIN W DHA CAPSULE PO SCH (10:42)
[2018-04-01] MEDS: DOCUSATE SODIUM 100 MG CAPSULE PO SCH ×2 (10:42→18:16)
[2018-04-01] MEDS: OXYCODONE-ACETAMINOPHEN 5-325 MG TABLET PO PRN ×2 (10:47→19:57)
[2018-04-01] MEDS ORDERED: NIFEDIPINE 30 MG TAB.ER.24 PO ONE (22:00)
[2018-04-02] MEDS: IBUPROFEN 800 MG TABLET PO SCH (05:01)
[2018-04-02 06:57] LABS: ABSOLUTE LYMPHOCYTES# (MANUAL) 2.2 10^3/uL (0.5-4.7); ABSOLUTE MONOCYTES # (MANUAL) 0.6 10^3/uL (0.1-1.4); ABSOLUTE NEUTROPHILS# (MANUAL) 12.3 10^3/uL (1.7-8.2); BASOPHILS % (MANUAL) 1 % (0-2); EOSINOPHILS % (MANUAL) 2 % (0-6); LYMPHOCYTES % (MANUAL) 14 % (13-45); MONOCYTES % (MANUAL) 4 % (3-13); SEGMENTED NEUTROPHILS % (MAN) 79 % (42-78); TOTAL CELLS COUNTED 100
[2018-04-02 07:00] LABS: ANISOCYTOSIS 1+; OVALOCYTES 1+; POIKILOCYTOSIS 2+; TOXIC GRANULATION 1+
[2018-04-02 07:01] LABS: PLATELET COMMENT ADEQUATE; TEAR DROP CELLS 3+
[2018-04-02 07:05] LABS: ABSOLUTE EOSINOPHILS # (AUTO) 0.3 10^3/uL (0.0-0.6); ABSOLUTE LYMPHOCYTES (AUTO) 2.6 10^3/uL (0.5-4.7); ABSOLUTE MONOCYTES (AUTO) 1.6 10^3/uL (0.1-1.4); ABSOLUTE NEUT (AUTO) 11.6 10^3/uL (1.7-8.2); BASOPHILS % (AUTO) 0.2 % (0-2); EOSINOPHILS % (AUTO) 1.8 % (0-6); HEMATOCRIT 25.9 % (36.0-47.0); LYMPHOCYTES % (AUTO) 15.9 % (13-45); MEAN CORPUSCULAR VOLUME 73 fl (80-97); MONOCYTES % (AUTO) 9.8 % (3-13); PLATELET COUNT 207 10^3/uL (150-450); RED BLOOD COUNT 3.57 10^6/uL (3.72-5.28); RED CELL DISTRIBUTION WIDTH 17.5 % (11.5-14.0); SEGMENTED NEUTROPHILS % (AUTO) 72.3 % (42-78); TOTAL CELLS COUNTED % (AUTO) 100 %
[2018-04-02 07:09] LABS: HEMOGLOBIN 8.6 g/dL (12.0-15.5)
[2018-04-02] MEDS: DOCUSATE SODIUM 100 MG CAPSULE PO SCH (09:26)
[2018-04-02] MEDS: PRENATAL VITAMIN W DHA CAPSULE PO SCH (09:26)
[2018-04-02] MEDS: FERROUS SULFATE 325 MG TABLET PO SCH (09:27)
--- NOTE | 2018-04-02 09:41 | PDOC PROGRESS REPORT ---
Subjective-OB Progress Note for:: 04/02/18 Subjective: Doing well, no vertigo, ambulating, holding baby, pain under control, , passing gas Physical Exam (OB) Vital Signs: Temp Pulse Resp BP Pulse Ox 97.8 F 105 H 20 134/80 H 96 04/02/18 07:53 04/02/18 07:53 04/02/18 07:53 04/02/18 07:53 04/02/18 07:53 Intake & Output 04/01/18 04/02/18 04/03/18 06:59 06:59 06:59 Intake Total 1000 2550 Output Total 800 600 Balance 200 1950 - PIH/Pre-Eclampsia DTR's: 1 + Clonus: Negative Headache: Absent Epigastric Pain: No Visual Changes: No - Dressing Removed: No Incision: Dressing Closure Type: elastic ta - Lochia Lochia Amount: Scant < 10 ml Lochia Color: Rubra/Red - Abdomen Description: Soft, Round Hernia Present: No Fundal Description: Firm, Midline Fundal Height: u/u - u/2 Objective-Diagnostic Laboratory: 04/02/18 05:36 03/30/18 04/02/18 22:30 05:36 WBC 16.0 H RBC 3.57 L Hgb 8.6 L D Hct 25.9 L MCV 73 L MCH 24.0 L MCHC 33.0 RDW 17.5 H Plt Count 207 Seg Neutrophils % 72.3 Lymphocytes % 15.9 Monocytes % 9.8 Eosinophils % 1.8 Basophils % 0.2 Absolute Neutrophils 11.6 H Absolute Lymphocytes 2.6 Absolute Monocytes 1.6 H Absolute Eosinophils 0.3 Absolute Basophils 0.0 Blood Type AB POSITIVE Antibody Screen NEGATIVE Assessment and Plan(PN) - Assessment and Plan (1) Anemia due to blood loss, acute Is this a current diagnosis for this admission?: Yes (2) S/P primary low transverse Is this a current diagnosis for this admission?: Yes (3) Breech presentation Qualifiers: Fetus number: single or unspecified fetus Qualified Code(s): O32.1XX0 - Maternal care for breech presentation, not applicable or unspecified Is this a current diagnosis for this admission?: Yes (4) Pre-eclampsia Qualifiers: Trimester: third trimester Qualified Code(s): O14.93 - Unspecified pre- eclampsia, third trimester Is this a current diagnosis for this admission?: Yes (5) Gestational diabetes mellitus (GDM) Qualifiers: Gestational diabetes mellitus control: diet-controlled Is this a current diagnosis for this admission?: Yes (6) Chronic hypertension affecting Is this a current diagnosis for this admission?: Yes - Time Spent with Patient Time with patient: Less than 15 minutes Medications reviewed and adjusted accordingly: Yes - Disposition Anticipated Discharge: Home Within: within 24 hours
--- NOTE | 2018-04-02 09:49 | PDOC DISCHARGE SUMMARY ---
Final Diagnosis Discharge Date: 04/02/18 - Final Diagnosis (1) Anemia due to blood loss, acute Is this a current diagnosis for this admission?: Yes (2) S/P primary low transverse Is this a current diagnosis for this admission?: Yes (3) Breech presentation Is this a current diagnosis for this admission?: Yes (4) Pre-eclampsia Is this a current diagnosis for this admission?: Yes (5) Gestational diabetes mellitus (GDM) Is this a current diagnosis for this admission?: Yes (6) Chronic hypertension affecting Is this a current diagnosis for this admission?: Yes Discharge Data - Discharge Medication Prescriptions: Oxycodone HCl/Acetaminophen [Percocet 5-325 mg Tablet] 1 tab PO Q4HP PRN #14 tablet PRN Reason: Ibuprofen [Motrin 800 mg Tablet] 800 mg PO Q6 #60 tablet Nifedipine [Procardia XL 30 mg Tablet] 30 mg PO DAILY #30 tab.er.24 Home Medications: Albuterol Sulfate [Ventolin 0.083% Neb 2.5 mg/3 mL Ampul] 2.5 mg IH PRN PRN 04/05 Vits96/Iron Fum/Folic [ Tablet] 1 tab PO DAILY 08/17/13 NPH, Human Insulin Isophane [Novolin N (NPH) Insulin 100 unit/mL] 22 [facility] 03/26/18 Ibuprofen [Motrin 800 mg Tablet] 800 mg PO Q6 #60 tablet 04/02/18 Nifedipine [Procardia XL 30 mg Tablet] 30 mg PO DAILY #30 tab.er.24 04/02/18 Oxycodone HCl/Acetaminophen [Percocet 5-325 mg Tablet] 1 tab PO Q4HP PRN #14 tablet 04/02/18 Gestational Age: 37 Reason(s) for Admission: Induction of Labor, Ceasarean Section-Primary, PIH, Gestional Diabetes Admission Note: Breech Procedures: NST, Ultrasound Intrapartum Procedure(s): : Low Cervical, Transverse - [place] Data Baby 1 Female at 1 minute: 7 at 5 minutes: 9 Weight: 2.977 kg Home with Mother: Yes Complications: No - Diagnosis Test Laboratory: Temp Pulse Resp BP Pulse Ox 97.8 F 105 H 20 134/80 H 96 04/02/18 07:53 04/02/18 07:53 04/02/18 07:53 04/02/18 07:53 04/02/18 07:53 03/30/18 03/30/18 04/01/18 22:30 22:30 05:18 RBC 3.59 L 2.83 L Hgb 8.4 L 6.5 L Hct 25.4 L 19.8 L Urine Opiates Screen NEGATIVE 04/02/18 05:36 RBC 3.57 L Hgb 8.6 L D Hct 25.9 L Urine Opiates Screen - Discharge information/Instructions Discharge Activity: Activity As Tolerated, No Lifting Over 10 Pounds, No Lifting /Push/Pulling, Pelvic Rest Discharge Diet: As Tolerated, Regular Disposition: HOME, SELF-CARE [facility]: 4, Days
[2018-04-02] MEDS ORDERED: NIFEDIPINE 30 MG TAB.ER.24 PO SCH (10:00)
[2018-04-02 12:00] VITALS: BP 148/96
== END 2018-04-02 12:38 | disposition home or self-care (01) | DRG 787 ==
LOC: LC 22:01 → LR 23:22 → 2S 03-31 04:50
PROVIDERS: ADMIT Student in an Organized Health Care Education/Training Program; ATTEND Student in an Organized Health Care Education/Training Program
PROC: 10D00Z1 Extraction of Products of Conception, Low, Open Approach (ICD-10-PCS; principal; 2018-03-31)
PROC: 30233N1 Transfusion of Nonautologous Red Blood Cells into Peripheral Vein, Percutaneous Approach (ICD-10-PCS; 2018-04-01)
DX: O10.02 Pre-existing essential hypertension complicating childbirth (principal); D62 Acute posthemorrhagic anemia; Z68.41 Body mass index [BMI] 40.0-44.9, adult; O99.02 Anemia complicating childbirth; O24.420 Gestational diabetes mellitus in childbirth, diet controlled; O32.1XX0 Maternal care for breech presentation, not applicable or unspecified; D57.3 Sickle-cell trait; O14.94 Unspecified pre-eclampsia, complicating childbirth; O99.52 Diseases of the respiratory system complicating childbirth; J45.909 Unspecified asthma, uncomplicated; O99.214 Obesity complicating childbirth; E66.9 Obesity, unspecified; Z3A.36 36 weeks gestation of pregnancy; Z37.0 Single live birth
CPT/HCPCS: 1961; 36415; 36430; 80307; 81005; 85025; 85027; 86592; 86850; 86900; 86901; 86920; 88307; 94760; 94799; J0131; J0690; J1100; J2175; J2270; J2405; J2590; J2765; J3490; P9016